=== PATIENT | male | born 1955 | race Caucasian/White ===

== ENCOUNTER 2019-01-01 08:39 | Outpatient (CLI) | payer OTHER, MEDICARE ==
[2019-01-01 10:43] LABS: ALBUMIN 4.3 g/dL (3.2-5.5); ALBUMIN/GLOBULIN RATIO 1.2 (1.0-2.2); ALKALINE PHOSPHATASE 73 IU/L (42-121); ALT ALANINE AMINOTRANSFERASE 25 IU/L (10-60); AST ASPARTATE AMINOTRANSFERASE 20 IU/L (10-42); BILIRUBIN,TOTAL 1.3 mg/dL (0.2-1.0); BUN - BLOOD UREA NITROGEN 21 mg/dL (6-20); CALCIUM 9.1 mg/dL (8.5-10.3); CARBON DIOXIDE - CO2 22 mmol/L (21-32); CHLORIDE 104 mmol/L (101-111); CHOL/HDL RATIO 4.1 (<5.0); CHOLESTEROL 115 mg/dL; CREATININE 1.1 mg/dL (0.6-1.2); GFR - MDRD 67 (>89); GLUCOSE 138 mg/dL (70-100); HDL CHOLESTEROL 28 mg/dL; LDL CHOLESTEROL,CALCULATED 62 mg/dL; LDL/HDL RATIO 2.2 (<3.6); SODIUM 136 mmol/L (135-145); TOTAL PROTEIN 7.9 g/dL (6.7-8.2); VLDL CHOLESTEROL 25 mg/dL
[2019-01-01 11:00] LABS: HB2 TOTAL 17.4 g/dL; HEMOGLOBIN A1C 0.81 g/dL; HEMOGLOBIN A1C % 6.4 % (4.6-6.2)
== END 2019-01-01 08:40 | disposition home or self-care (01) ==
LOC: LAB.F 08:39
PROVIDERS: ATTEND Internal Medicine
DX: E78.5 Hyperlipidemia, unspecified (principal); R73.02 Impaired glucose tolerance (oral); Z12.5 Encounter for screening for malignant neoplasm of prostate
CPT/HCPCS: 36415; 80053; 80061; 83036; 83721; 84153

== ENCOUNTER 2020-11-21 09:19 | Emergency (ER) | payer BC, MEDICARE ==
[2020-11-21] MEDS ORDERED: SODIUM CHLORIDE 0.9% 1,000 ML IV STA (09:32)
[2020-11-21] MEDS ORDERED: MORPHINE 10 MG/ML VIAL IVP STA (09:32)
[2020-11-21] MEDS ORDERED: ONDANSETRON 4 MG/2 ML VIAL IVP STA (09:33)
[2020-11-21 09:51] LABS: BASOPHILS # (AUTO) 0.1 10^3/uL (0.0-0.1); BASOPHILS % (AUTO) 0.4 %; EOSINOPHILS % (AUTO) 0.1 %; HCT - HEMATOCRIT 44.8 % (42.0-52.0); HGB - HEMOGLOBIN 15.3 g/dL (14.0-18.0); LYMPHOCYTES # (AUTO) 1.3 10^3/uL (1.5-3.5); LYMPHOCYTES % (AUTO) 8.2 %; MEAN CORPUSCULAR HEMOGLOBIN 32.6 pg (27.0-31.0); MEAN CORPUSCULAR HGB CONC 34.2 g/dL (32.0-36.0); MEAN CORPUSCULAR VOLUME 95.5 fL (80.0-94.0); MEAN PLATELET VOLUME 9.6 fL (7.4-11.4); MONOCYTES # (AUTO) 1.1 10^3/uL (0.0-1.0); MONOCYTES % (AUTO) 6.6 %; NEUTROPHILS # (AUTO) 13.3 10^3/uL (1.5-6.6); NEUTROPHILS % (AUTO) 84.2 %; PLT - PLATELET COUNT 190 10^3/uL (130-450); RED BLOOD COUNT 4.69 10^6/uL (4.70-6.10); WHITE BLOOD COUNT 15.8 x10^3/uL (4.8-10.8)
[2020-11-21] MEDS ORDERED: IOPAMIDOL-300 100 ML VIAL ONE (09:58)
[2020-11-21 10:05] LABS: ALBUMIN 4.3 g/dL (3.2-5.5); ALBUMIN/GLOBULIN RATIO 1.3 (1.0-2.2); CALCIUM 9.2 mg/dL (8.5-10.3); CREATININE 1.3 mg/dL (0.6-1.2); POTASSIUM 4.3 mmol/L (3.5-5.0); TOTAL PROTEIN 7.7 g/dL (6.7-8.2)
--- NOTE | 2020-11-21 10:58 | CT Report ---
PROCEDURE: Abdomen/Pelvis W INDICATIONS: flank pain, hx kidney stones CONTRAST: IV CONTRAST: Isovue 300 ml: 100 PO CONTRAST: *NO PO CONTRAST TECHNIQUE: After the administration of IV contrast, 5 mm thick sections acquired from the diaphragms to the symp hysis. 5 mm thick coronal and sagittal reformats were acquired. For radiation dose reduction, the f ollowing was used: automated exposure control, adjustment of mA and/or kV according to patient size. COMPARISON: None. FINDINGS: Image quality: Excellent. ABDOMEN: Lung bases: Lung bases are clear. Heart size is normal. Solid organs: Liver is mildly diffusely hypodense. The spleen is normal. There is a splenule at the caudal tip. There is a 7 mm coarse calcification in the ventral tail of the pancreas. The pancreas is otherwise normal. The gallbladder surgically absent. The biliary system is nondilated. The adrenal g lands are normal. Moderate left perinephric inflammation and mild left hydronephrosis. Mild proximal hydroureter. There is a 3 x 5 mm calcification in the proximal left ureter distal to which the ureter is nondilated. Rajiv th ureters demonstrate small cortical and cortical medullary cysts. An exophytic cystic mass arising posteriorly in the right kidney measuring 1.5 cm demonstrates indeterminate Hounsfield units on the s tudy. Peritoneum and bowel: Bowel loops demonstrate normal wall thickness and caliber. No free fluid or a ir. Nodes and vessels: No retroperitoneal or mesenteric adenopathy by size criteria. Aorta and inferior vena cava are normal in size. There is heavy mixed calcified and noncalcified atherosclerotic plaqu e. The right common iliac artery is occluded just distal to the bifurcation. External iliac artery re constitutes by abdominal wall collaterals just proximal to the inguinal ligament. Miscellaneous: No ventral hernias. PELVIS: Genitourinary: Distal ureters and urinary bladder appear normal. The prostate gland is minimally enla rged.. Miscellaneous: Small fat-containing right inguinal hernia is present. Bones: No suspicious bony lesions. No vertebral body compression fractures. IMPRESSION: 1. 3 x 5 mm obstructing left proximal ureteral calcification causing mild left hydroureteronephrosis and moderate perinephric inflammation. 2. Indeterminate 1.5 cm exophytic right posterior renal cystic mass. Renal protocol contrast-enhanced MRI or CT is recommended for further characterization. 3. Atherosclerotic aortoiliac occlusive disease. 4. Mild hepatic steatosis. Reviewed by: Yu Chang MD on 11/21/2020 10:57 AM PDT Approved by: Yu Chang MD on 11/21/2020 10:57 AM PDT Station ID: [id number]
[2020-11-21 11:14] LABS: BILIRUBIN,URINE NEGATIVE (NEGATIVE); GLUCOSE, URINE (UA) 500 mg/dL (NEGATIVE); KETONES,URINE (UA) NEGATIVE (NEGATIVE); LEUKOCYTE ESTERASE, URINE NEGATIVE (NEGATIVE); NITRITE,URINE NEGATIVE (NEGATIVE); OCCULT BLOOD,URINE MODERATE (NEGATIVE); PROTEIN,URINE 30 mg/dL (NEGATIVE); UROBILINOGEN,URINE 0.2 (NORMAL) E.U./dL (NORMAL)
[2020-11-21 11:15] LABS: CLARITY,URINE CLEAR (CLEAR)
[2020-11-21 11:22] LABS: BACTERIA,URINE Few /HPF (None Seen); RBC,URINE 0-5 /HPF (0-5); SQUAMOUS EPITHELIAL CELL,UR FEW Squamous (<= Few); WBC,URINE 0-3 /HPF (0-3)
--- NOTE | 2020-11-21 11:51 | ED Physician Documentation ---
History of Present Illness - Stated complaint Stated Complaint: MALE - Chief complaint Chief Complaint: Abd Pain - History obtained from History obtained from: Patient - Additonal information Additional information: 65-year-old man with past medical history of kidney stones presents with left flank pain sudden in onset last night radiating to the left lower quadrant associated with nonbloody nonbilious nausea and vomiting. This pain is intermittent, occurring about every 15 minutes, severe at present, 7 out of 10, sharp quality. Patient denies urinary symptoms.Denies fever Review of Systems Ten Systems: 10 systems reviewed and negative Constitutional: denies: Fever Cardiac: denies: Chest pain / pressure Respiratory: denies: Dyspnea GI: reports: Abdominal Pain, Nausea, Vomiting : denies: Dysuria, Frequency, Hesitancy, Hematuria Skin: denies: Rash Musculoskeletal: reports: Back pain PD PAST MEDICAL HISTORY - Past Medical History Cardiovascular: Hypertension, High cholesterol : Kidney stones - Past Surgical History General: Cholecystectomy Ortho: Arthroscopic surgery - Present Medications Home Medications: Ambulatory Orders Medication Instructions Recorded Confirmed Amlodipine Besylate [Norvasc] 1 tab PO DAILY 11/21/20 11/21/20 Atorvastatin [Lipitor] 1 tab PO DAILY 11/21/20 11/21/20 Benazepril HCl 1 tab PO DAILY 11/21/20 11/21/20 Doxycycline Hyclate 1 tab PO DAILY PRN 11/21/20 11/21/20 Ondansetron Odt [Zofran Odt] 4 mg TL Q6H PRN #10 tablet 11/21/20 Oxycodone HCl/Acetaminophen 1 each PO Q4H PRN #10 tablet 11/21/20 [Percocet 5-325 mg Tablet] Propranolol [Inderal] 5 mg PO DAILY 11/21/20 11/21/20 Tamsulosin [Flomax] 0.4 mg PO DAILY 14 Days #14 tab 11/21/20 metFORMIN [Glucophage] 1 tab PO DAILY 11/21/20 11/21/20 - Allergies Allergies/Adverse Reactions: Allergies Allergy/AdvReac Type Severity Reaction Status Date / Time Sulfa (Sulfonamide Allergy Hives Verified 11/21/20 09:26 Antibiotics) - Social History Does the pt smoke?: Yes Smoking Status: Current every day smoker Does the pt drink ETOH?: No Does the pt have substance abuse?: No PD ED PE NORMAL - Vitals Vital signs reviewed: Yes - General General: Alert and oriented X 3, No acute distress, Well developed/nourished - HEENT HEENT: Atraumatic, PERRL, EOMI - Neck Neck: Supple, no meningeal sign - Cardiac Cardiac: RRR - Respiratory Respiratory: No respiratory distress, Clear bilaterally - Abdomen Abdomen: Non tender, Non distended - Back Back: Other (Left CVA tender to palpation. Right CVA nontender) - Derm Derm: Normal color - Extremities Extremities: No deformity - Neuro Neuro: Alert and oriented X 3 - Psych Psych: Normal mood, Normal affect Results - Vitals Vitals: Vital Signs - 24 hr 11/21/20 11/21/20 11/21/20 09:26 11:05 12:11 Temperature 36.1 C L 36.0 C L Heart Rate 65 54 L Respiratory 18 18 Rate Blood Pressure 195/93 H 185/71 H 187/62 H O2 Saturation 96 96 Oxygen O2 Source Room air - Labs Labs: Laboratory Tests 11/21/20 11/21/20 11/21/20 09:36 09:36 11:03 WBC 15.8 H RBC 4.69 L Hgb 15.3 Hct 44.8 MCV 95.5 H MCH 32.6 H MCHC 34.2 RDW 13.0 Plt Count 190 MPV 9.6 Neut # (Auto) 13.3 H Lymph # (Auto) 1.3 L Summers # (Auto) 1.1 H Eos # (Auto) 0.0 Baso # (Auto) 0.1 Absolute Nucleated RBC 0.00 Nucleated RBC % 0.0 Sodium 137 Potassium 4.3 Chloride 106 Carbon Dioxide 19 L Anion Gap 12.0 BUN 21 H Creatinine 1.3 H Estimated GFR (MDRD) 55 L Glucose 277 H Calcium 9.2 Total Bilirubin 1.0 AST 24 ALT 30 Alkaline Phosphatase 80 Total Protein 7.7 Albumin 4.3 Globulin 3.4 Albumin/Globulin Ratio 1.3 Lipase 33 Urine Color LT. YELLOW Urine Clarity CLEAR Urine pH 5.0 Ur Specific [place] 1.020 Urine Protein 30 H Urine Glucose (UA) 500 H Urine Ketones NEGATIVE Urine Occult Blood MODERATE H Urine Nitrite NEGATIVE Urine Bilirubin NEGATIVE Urine Urobilinogen 0.2 (NORMAL) Ur Leukocyte Esterase NEGATIVE Urine RBC 0-5 Urine WBC 0-3 Ur Squamous Epith Cells FEW Squamous Urine Bacteria Few Urine Culture Comments NOT INDICATED PD MEDICAL DECISION MAKING - ED course ED course: 65-year-old man with prior history of stones presents with left kidney stone with mild hydronephrosis. Discussed results with the patient who is aware that he will need to follow-up with his primary doctor in regard to the incidental findings as well as in regard to the hydroureteronephrosis and need for follow- up dedicated renal CT or MRI. He has a copy of the CT report as well. Patient will follow up with urology in regards to his kidney stones. Strict return precautions given. Departure - Departure Disposition: 01 Home, Self Care Clinical Impression: Kidney stones Condition: Good Instructions: Kidney Stones Follow-Up: Georgia Moreland MD [Physician No Access] - Prescriptions: Tamsulosin [Flomax] 0.4 mg PO DAILY 14 Days #14 tab Oxycodone HCl/Acetaminophen [Percocet 5-325 mg Tablet] 1 each PO Q4H PRN #10 tablet PRN Reason: Pain Ondansetron Odt [Zofran Odt] 4 mg TL Q6H PRN #10 tablet PRN Reason: Nausea / Vomiting Comments: You are seen in the emergency department for kidney stones. You should have a follow-up CT with renal protocol as we discussed. Make sure that you follow-up with your primary doctor in regards to these results and also follow-up with Dr. Moreland, the urologist at [facility]. Return to the emergency department if you have any new or worsening symptoms or other concerns. Discharge Date/Time: 11/21/20 12:12
[2020-11-21 12:12] VITALS: BP 187/62
[2020-11-21] MEDS ORDERED: IOPAMIDOL-300 100 ML VIAL IVP ONE (17:02)
== END 2020-11-21 12:12 | disposition home or self-care (01) ==
LOC: ED 09:19
DX: N13.2 Hydronephrosis with renal and ureteral calculous obstruction (principal); I10 Essential (primary) hypertension; F17.200 Nicotine dependence, unspecified, uncomplicated
CPT/HCPCS: 36415; 74177; 80053; 81001; 83690; 85025; 96361; 96374; 96375; 99284; Q9967; 87086

== ENCOUNTER 2021-01-02 09:06 | Outpatient (CLI) | payer MEDICARE ==
[2021-01-02] MEDS ORDERED: GADOBUTROL 15 MMOL/15 ML VIAL ONE (09:54)
--- NOTE | 2021-01-02 11:34 | MRI Report ---
PROCEDURE: Abdomen W/WO INDICATIONS: PERIPHERAL VASCULAR DISEASE, SMOKER, RENAL MASS CONTRAST: IV CONTRAST: Gadavist ml: 11 TECHNIQUE: Coronal ultra fast SE, axial 2D spoiled GE in- and [id number]; axial breath-hold T2 fast SE. Dynam ic axial ultra fast GE during the administration of contrast; post-contrast coronal ultra fast GE or 2D spoiled GE with fat saturation from the hepatic dome to the iliac crests. Optional diffusion weig hted imaging and ADC may be performed. COMPARISON: Prior CT 11/21/2020 which identified a 1.5 cm 40.3 H[address] ovoid indeterminate [address] ructure projecting from the posterior cortical border of the right mid kidney. FINDINGS: Image quality: Excellent. Lung bases: No basal pleural effusions. Heart size is normal. Solid organs: Liver and spleen are normal in size and enhancement. Gallbladder has been previously resected Biliary system is non dilated. Pancreas is normal in morphology. No adrenal nodules. Bot h kidneys demonstrate normal size and enhancement, without hydronephrosis. The prior CT scanning fro mid November of this year had identified in exophytic sharply demarcated homogeneous structure with an a ppearance most likely representing proteinaceous cyst. This measured higher than water in radiodensit y on CT scanning. The current study shows a perceptible thin rim of soft tissue surrounding nonenhanc ing internal material, consistent with a minimally complex cyst. No nodularity or internal septations are seen. Nodes and vessels: No retroperitoneal or mesenteric adenopathy by size criteria. Aorta and inferior vena cava are normal in size. Bowel and peritoneum: Unenhanced bowel loops are normal in caliber. No free fluid. Bones and soft tissues: No ventral hernias. Bone marrow is normal in overall signal. IMPRESSION: The structure exophytic from the posterior border of the right mid kidney has imaging findings consis tent with minimally complex proteinaceous right exophytic cyst measuring up to 1.5 cm in maximal dime nsion. This structure does not have imaging characteristics suggestive of renal cortical malignancy. This there is a indication for follow-up of this structure over time a near term targeted single orga n right renal ultrasound should be obtained to establish baseline imaging and follow-up assessment in 6 months could be obtained and assuming stability and additional follow-up in 1 year thereafter coul d be obtained. Reviewed by: Fredy Mon MD on 01/02/2021 11:32 AM PDT Approved by: Fredy Mon MD on 01/02/2021 11:32 AM PDT Station ID: [id number]
--- NOTE | 2021-01-02 12:00 | Ultrasound Report ---
PROCEDURE: Aorta Screening INDICATIONS: PERIPHERAL VASCULAR DISEASE, SMOKER, RENAL MASS TECHNIQUE: Real time scanning was performed of the aorta and iliac arteries, with image documentatio n. COMPARISON: CT abdomen/pelvis 11/21/2020 FINDINGS: Aorta: Proximal aortic diameter measures 2.6 cm. Mid-aorta measures 2.4 cm. Distal aortic diameter is 2.1 cm. Iliac arteries: Right common iliac artery measures 1.3 cm., And is occluded. Left common iliac norma ry measures 1.5 cm. IMPRESSION: No aneurysmal dilatation found over the aorta and common iliac arteries. However, the right common il iac artery is occluded. Reviewed by: Fredy Mon MD on 01/02/2021 11:58 AM PDT Approved by: Fredy Mon MD on 01/02/2021 11:58 AM PDT Station ID: [id number]
[2021-01-02] MEDS ORDERED: GADOBUTROL 15 MMOL/15 ML VIAL IVP ONE (16:26)
== END 2021-01-02 09:07 | disposition home or self-care (01) ==
LOC: DI 09:06
PROVIDERS: ATTEND Internal Medicine
DX: I73.9 Peripheral vascular disease, unspecified (principal); I74.5 Embolism and thrombosis of iliac artery; F17.210 Nicotine dependence, cigarettes, uncomplicated; N28.89 Other specified disorders of kidney and ureter; N28.1 Cyst of kidney, acquired
CPT/HCPCS: 74183; 76706; A9585

== ENCOUNTER 2021-02-13 10:28 | Outpatient (CLI) | payer MEDICARE ==
[2021-02-13 11:00] LABS: BASOPHILS # (AUTO) 0.1 10^3/uL (0.0-0.1); BASOPHILS % (AUTO) 0.7 %; EOSINOPHILS # (AUTO) 0.2 10^3/uL (0.0-0.7); EOSINOPHILS % (AUTO) 1.5 %; HCT - HEMATOCRIT 45.3 % (42.0-52.0); HGB - HEMOGLOBIN 15.7 g/dL (14.0-18.0); LYMPHOCYTES # (AUTO) 2.8 10^3/uL (1.5-3.5); LYMPHOCYTES % (AUTO) 24.9 %; MEAN CORPUSCULAR HEMOGLOBIN 32.8 pg (27.0-31.0); MEAN CORPUSCULAR HGB CONC 34.7 g/dL (32.0-36.0); MEAN CORPUSCULAR VOLUME 94.8 fL (80.0-94.0); MEAN PLATELET VOLUME 9.6 fL (7.4-11.4); MONOCYTES # (AUTO) 1.2 10^3/uL (0.0-1.0); MONOCYTES % (AUTO) 10.3 %; NEUTROPHILS % (AUTO) 62.2 %; PLT - PLATELET COUNT 197 10^3/uL (130-450); RED BLOOD COUNT 4.78 10^6/uL (4.70-6.10); RED CELL DISTRIBUTION WIDTH 12.9 % (12.0-15.0); WHITE BLOOD COUNT 11.2 x10^3/uL (4.8-10.8)
[2021-02-13 11:09] LABS: ALBUMIN 4.3 g/dL (3.2-5.5); ALBUMIN/GLOBULIN RATIO 1.4 (1.0-2.2); ALKALINE PHOSPHATASE 87 IU/L (42-121); ALT ALANINE AMINOTRANSFERASE 26 IU/L (10-60); AST ASPARTATE AMINOTRANSFERASE 19 IU/L (10-42); BILIRUBIN,TOTAL 1.1 mg/dL (0.2-1.0); BUN - BLOOD UREA NITROGEN 17 mg/dL (6-20); CALCIUM 9.1 mg/dL (8.5-10.3); CARBON DIOXIDE - CO2 21 mmol/L (21-32); CHLORIDE 107 mmol/L (101-111); CHOL/HDL RATIO 3.9 (<5.0); CHOLESTEROL 116 mg/dL; GFR - MDRD 75 (>89); GLUCOSE 223 mg/dL (70-100); HDL CHOLESTEROL 30 mg/dL; LDL CHOLESTEROL,CALCULATED 55 mg/dL; LDL/HDL RATIO 1.8 (<3.6); POTASSIUM 4.1 mmol/L (3.5-5.0); SODIUM 139 mmol/L (135-145); TOTAL PROTEIN 7.4 g/dL (6.7-8.2); TRIGLYCERIDES 155 mg/dL; VLDL CHOLESTEROL 31 mg/dL
[2021-02-13 12:52] LABS: ESTIMATED AVERAGE GLUCOSE 214 mg/dL (70-100); HEMOGLOBIN A1c% 9.1 % (4.27-6.07)
== END 2021-02-13 10:29 | disposition home or self-care (01) ==
LOC: LAB 10:28
PROVIDERS: ATTEND Internal Medicine
DX: I10 Essential (primary) hypertension (principal); E78.5 Hyperlipidemia, unspecified; R73.02 Impaired glucose tolerance (oral)
CPT/HCPCS: 36415; 80053; 80061; 83036; 83721; 85025

== ENCOUNTER 2021-03-27 09:06 | Outpatient (CLI) | payer MEDICARE ==
[2021-03-27] MEDS ORDERED: IOPAMIDOL-300 100 ML VIAL ONE (09:21)
[2021-03-27] MEDS ORDERED: IOPAMIDOL-300 100 ML VIAL IVP ONE (13:55)
--- NOTE | 2021-03-27 16:59 | CT Report ---
PROCEDURE: ANGIO ABD RUNOFF W/WO - B/L INDICATIONS: PERIPHERAL ARTERY DISEASE CONTRAST: IV CONTRAST: Isovue 300 ml: 125 PO CONTRAST: *NO PO CONTRAST TECHNIQUE: After the administration of intravenous contrast, 2 and 5 mm sections acquired from T12 to the feet, with optional delayed image acquisition from the knees to the feet. 3-dimensional maximum intensity projection (MIP) coronal and sagittal reformats, and/or 3-dimensional volume rendering reformatting w as then performed. For radiation dose reduction, the following was used: automated exposure control , adjustment of mA and/or kV according to patient size. COMPARISON: None. FINDINGS: Image quality: Degraded by technical factors Extravascular tissues: Visualized arterial phase portions of the liver, pancreas, spleen, adrenals, a nd kidneys are grossly unremarkable. Gallbladder surgically absent. Urinary bladder grossly unremarka ble. Visualized bowel loops are normal in appearance. No adenopathy. No free fluid. Abdominal aorta: There is moderate diffuse plaque within the abdominal aorta, causing moderate diff use stenosis. No aneurysm nor dissection. Right lower extremity: The common and external iliac arteries are occluded. Internal iliac artery is occluded at its origin and reconstitutes just distal to its origin. There is reconstituted flow with in the common femoral artery which is mildly diffusely stenotic. Profunda and superficial femoral art eries are widely patent. Above and below knee popliteal artery is patent. Anterior tibial artery, tib ioperoneal trunk, peroneal and posterior tibial arteries are patent. Left lower extremity: Common iliac artery demonstrates a chronic appearing short segment limited dis section within its mid/distal aspect, which does not appear to be flow-limiting. Internal and axial i liac arteries are patent. Common, profunda, superficial femoral arteries are patent. Above and below knee popliteal artery is patent. Anterior tibial artery, tibioperoneal trunk, peroneal and posterior tibial arteries are grossly patent. IMPRESSION: 1. Moderate diffuse aortic stenosis. 2. Occlusion of the right iliac artery. No significant left-sided inflow stenosis. 3. No significant outflow nor runoff vessel stenosis bilaterally. Reviewed by: Irasema Allan MD on 03/27/2021 4:57 PM PDT Approved by: Irasema Allan MD on 03/27/2021 4:57 PM PDT Station ID: [id number]
== END 2021-03-27 09:07 | disposition home or self-care (01) ==
LOC: DI 09:06
PROVIDERS: ATTEND Internal Medicine
DX: I35.0 Nonrheumatic aortic (valve) stenosis (principal); I74.5 Embolism and thrombosis of iliac artery
CPT/HCPCS: 36415; 75635; 82565; Q9967

== ENCOUNTER 2021-05-16 09:32 | Outpatient (CLI) | payer MEDICARE ==
[2021-05-16 09:57] LABS: BASOPHILS # (AUTO) 0.1 10^3/uL (0.0-0.1); BASOPHILS % (AUTO) 0.7 %; EOSINOPHILS # (AUTO) 0.1 10^3/uL (0.0-0.7); EOSINOPHILS % (AUTO) 1.5 %; HGB - HEMOGLOBIN 16.4 g/dL (14.0-18.0); LYMPHOCYTES # (AUTO) 2.1 10^3/uL (1.5-3.5); LYMPHOCYTES % (AUTO) 24.4 %; MEAN CORPUSCULAR HEMOGLOBIN 32.8 pg (27.0-31.0); MEAN CORPUSCULAR HGB CONC 33.5 g/dL (32.0-36.0); MEAN PLATELET VOLUME 9.5 fL (7.4-11.4); MONOCYTES # (AUTO) 0.9 10^3/uL (0.0-1.0); NEUTROPHILS # (AUTO) 5.5 10^3/uL (1.5-6.6); NEUTROPHILS % (AUTO) 63.1 %; PLT - PLATELET COUNT 204 10^3/uL (130-450); WHITE BLOOD COUNT 8.6 x10^3/uL (4.8-10.8)
[2021-05-16 10:10] LABS: ALBUMIN 4.4 g/dL (3.2-5.5); ALBUMIN/GLOBULIN RATIO 1.5 (1.0-2.2); BILIRUBIN,TOTAL 1.9 mg/dL (0.2-1.0); CALCIUM 9.4 mg/dL (8.5-10.3); CREATININE 1.2 mg/dL (0.6-1.2); POTASSIUM 4.2 mmol/L (3.5-5.0); TOTAL PROTEIN 7.4 g/dL (6.7-8.2)
[2021-05-16 12:05] LABS: ESTIMATED AVERAGE GLUCOSE 151 mg/dL (70-100); HEMOGLOBIN A1c% 6.9 % (4.27-6.07)
== END 2021-05-16 09:33 | disposition home or self-care (01) ==
LOC: LAB 09:32
PROVIDERS: ATTEND Internal Medicine
DX: I73.9 Peripheral vascular disease, unspecified (principal)
CPT/HCPCS: 36415; 80053; 83036; 85025

== ENCOUNTER 2022-09-11 09:32 | Outpatient (CLI) | payer MEDICARE ==
--- NOTE | 2022-09-12 13:37 | Ultrasound Report ---
PROCEDURE: Retroperitoneal Limited INDICATIONS: RENAL MASS TECHNIQUE: Real-time scanning was performed of the kidneys and bladder, with image documentation. COMPARISON: CT 03/27/2021, MR 12/25/2020, CT 11/21/2020. FINDINGS: Kidneys: Kidneys are normal in size. Right kidney measures 10.4 cm long; left kidney measures 11.3 cm long. Right renal cortical thickness is 1.4 cm; left renal cortical thickness is 1.5 cm. No mike d masses, hydronephrosis, or nephrolithiasis identified. At the right mid kidney, an exophytic simple appearing cyst is present measuring up to 1.7 cm, likely corresponding to the 1.5 cm cyst seen previ ously. 2 simple appearing left renal cyst present, largest at the lower kidney measuring up to 2.0 cm . Bladder: Pre-void bladder volume is 48 mL. Post-void images not obtained. Pre-void images demonstr ate no intraluminal masses or stones. On pre-void images, both ureteral jets are noted with color Do ppler interrogation. (Of note, ureteral jets may not be detectable in up to 25% of cases due to insu fficient differences in specific gravity between ureteral and bladder urine). Miscellaneous: No free abdominal fluid. IMPRESSION: No solid renal mass identified sonographically. Simple appearing renal cysts present bilaterally. Reviewed by: Robi Holliday MD on 09/12/2022 1:35 PM PST Approved by: Robi Holliday MD on 09/12/2022 1:35 PM PST Station ID: [id number]
== END 2022-09-11 09:33 | disposition home or self-care (01) ==
LOC: DI 09:32
PROVIDERS: ATTEND Registered Nurse
DX: N28.89 Other specified disorders of kidney and ureter (principal); N28.1 Cyst of kidney, acquired

== ENCOUNTER 2023-01-21 10:25 | Outpatient (CLI) | payer MEDICARE ==
[2023-01-21 10:52] LABS: BASOPHILS # (AUTO) 0.1 10^3/uL (0.0-0.1); BASOPHILS % (AUTO) 0.6 %; EOSINOPHILS # (AUTO) 0.1 10^3/uL (0.0-0.7); EOSINOPHILS % (AUTO) 1.3 %; HCT - HEMATOCRIT 48.8 % (42.0-52.0); HGB - HEMOGLOBIN 16.1 g/dL (14.0-18.0); LYMPHOCYTES # (AUTO) 2.4 10^3/uL (1.5-3.5); LYMPHOCYTES % (AUTO) 24.2 %; MEAN CORPUSCULAR HEMOGLOBIN 32.1 pg (27.0-31.0); MEAN CORPUSCULAR VOLUME 97.4 fL (80.0-94.0); MEAN PLATELET VOLUME 9.6 fL (7.4-11.4); MONOCYTES % (AUTO) 10.2 %; NEUTROPHILS # (AUTO) 6.2 10^3/uL (1.5-6.6); NEUTROPHILS % (AUTO) 63.4 %; PLT - PLATELET COUNT 158 10^3/uL (130-450); RED BLOOD COUNT 5.01 10^6/uL (4.70-6.10); RED CELL DISTRIBUTION WIDTH 13.4 % (12.0-15.0); WHITE BLOOD COUNT 9.8 x10^3/uL (4.8-10.8)
[2023-01-21 10:58] LABS: ESTIMATED AVERAGE GLUCOSE 157 mg/dL (70-100); HEMOGLOBIN A1c% 7.1 % (4.27-6.07)
[2023-01-21 11:11] LABS: ALBUMIN/GLOBULIN RATIO 1.3 (1.0-2.2); ALKALINE PHOSPHATASE 66 IU/L (42-121); ALT ALANINE AMINOTRANSFERASE 18 IU/L (10-60); AST ASPARTATE AMINOTRANSFERASE 16 IU/L (10-42); BILIRUBIN,TOTAL 1.1 mg/dL (0.2-1.0); BUN - BLOOD UREA NITROGEN 27 mg/dL (6-20); CALCIUM 9.1 mg/dL (8.5-10.3); CARBON DIOXIDE - CO2 22 mmol/L (21-32); CHLORIDE 112 mmol/L (101-111); CHOL/HDL RATIO 4.7 (<5.0); CHOLESTEROL 156 mg/dL; CREATININE 1.2 mg/dL (0.6-1.2); GFR - MDRD 60 (>89); GLUCOSE 161 mg/dL (70-100); HDL CHOLESTEROL 33 mg/dL; LDL CHOLESTEROL,CALCULATED 95 mg/dL; LDL/HDL RATIO 2.9 (<3.6); POTASSIUM 4.7 mmol/L (3.5-5.0); SODIUM 142 mmol/L (135-145); TOTAL PROTEIN 7.1 g/dL (6.7-8.2); TRIGLYCERIDES 142 mg/dL; VLDL CHOLESTEROL 28 mg/dL
== END 2023-01-21 10:26 | disposition home or self-care (01) ==
LOC: LAB 10:25
PROVIDERS: ATTEND Registered Nurse
DX: E78.5 Hyperlipidemia, unspecified (principal); Z79.899 Other long term (current) drug therapy; E11.9 Type 2 diabetes mellitus without complications; Z12.5 Encounter for screening for malignant neoplasm of prostate
CPT/HCPCS: 36415; 80053; 80061; 83036; 85025; G0103; 82043; 82570; 83721; 84153

== ENCOUNTER 2024-03-16 08:57 | Outpatient (CLI) | payer MEDICARE ==
[2024-03-16 09:07] LABS: BASOPHILS # (AUTO) 0.1 10^3/uL (0.0-0.1); BASOPHILS % (AUTO) 0.7 %; EOSINOPHILS # (AUTO) 0.3 10^3/uL (0.0-0.7); EOSINOPHILS % (AUTO) 2.5 %; HCT - HEMATOCRIT 48.2 % (42.0-52.0); HGB - HEMOGLOBIN 15.8 g/dL (14.0-18.0); LYMPHOCYTES # (AUTO) 2.3 10^3/uL (1.5-3.5); MEAN CORPUSCULAR HEMOGLOBIN 31.9 pg (27.0-31.0); MEAN CORPUSCULAR HGB CONC 32.8 g/dL (32.0-36.0); MEAN CORPUSCULAR VOLUME 97.4 fL (80.0-94.0); MEAN PLATELET VOLUME 9.4 fL (7.4-11.4); MONOCYTES # (AUTO) 1.2 10^3/uL (0.0-1.0); MONOCYTES % (AUTO) 10.8 %; NEUTROPHILS % (AUTO) 64.6 %; PLT - PLATELET COUNT 202 10^3/uL (130-450); RED BLOOD COUNT 4.95 10^6/uL (4.70-6.10); RED CELL DISTRIBUTION WIDTH 13.2 % (12.0-15.0); WHITE BLOOD COUNT 10.8 x10^3/uL (4.8-10.8)
[2024-03-16 09:38] LABS: THYROID STIMULATING HORMONE 2.59 uIU/mL (0.34-5.60)
[2024-03-16 09:46] LABS: ALBUMIN 4.4 g/dL (3.2-5.5); ALBUMIN/GLOBULIN RATIO 1.7 (1.0-2.2); ALKALINE PHOSPHATASE 77 IU/L (42-121); ALT ALANINE AMINOTRANSFERASE 18 IU/L (10-60); AST ASPARTATE AMINOTRANSFERASE 15 IU/L (10-42); BILIRUBIN,TOTAL 1.1 mg/dL (0.2-1.0); BUN - BLOOD UREA NITROGEN 19 mg/dL (6-20); CALCIUM 9.5 mg/dL (8.5-10.3); CARBON DIOXIDE - CO2 27 mmol/L (21-32); CHLORIDE 106 mmol/L (101-111); CHOL/HDL RATIO 3.3 (<5.0); CHOLESTEROL 111 mg/dL; CREATININE 1.3 mg/dL (0.6-1.3); GFR - MDRD 55 (>89); GLUCOSE 157 mg/dL (74-104); HDL CHOLESTEROL 34 mg/dL; LDL CHOLESTEROL,CALCULATED 55 mg/dL; LDL/HDL RATIO 1.6 (<3.6); POTASSIUM 4.9 mmol/L (3.5-4.5); SODIUM 139 mmol/L (135-145); TRIGLYCERIDES 109 mg/dL; VLDL CHOLESTEROL 22 mg/dL
== END 2024-03-16 08:58 | disposition home or self-care (01) ==
LOC: LAB 08:57
PROVIDERS: ATTEND Registered Nurse
DX: Z13.228 Encounter for screening for other metabolic disorders (principal); Z13.220 Encounter for screening for lipoid disorders; Z13.29 Encounter for screening for other suspected endocrine disorder; Z13.0 Encounter for screening for diseases of the blood and blood-forming organs and certain disorders involving the immune mechanism; Z12.5 Encounter for screening for malignant neoplasm of prostate
CPT/HCPCS: 36415; 80053; 80061; 84443; 85025; G0103; 83721; 84153

== ENCOUNTER 2024-03-29 03:35 | Outpatient (CLI) | payer MEDICARE | END 2024-03-29 23:59 | disposition critical access hospital (66) | LOC: EMS 03:35 | DX: R06.02 Shortness of breath (principal); R61 Generalized hyperhidrosis; R23.2 Flushing; R09.89 Other specified symptoms and signs involving the circulatory and respiratory systems | CPT/HCPCS: A0425; A0429 ==

== ENCOUNTER 2024-03-29 03:41 | Emergency (ER) | payer MEDICARE ==
[2024-03-29] MEDS ORDERED: iohexoL-300 100 ML VIAL ONE (03:47)
--- NOTE | 2024-03-29 03:53 | ED Physician Documentation ---
PD HPI DYSPNEA - Stated complaint Stated Complaint: SOA - History obtained from History obtained from: Patient, EMS - Additional information Additional information: 68-year-old male with history of prediabetes presents by EMS from home for s udden onset shortness of breath beginning around 3 AM today. Patient states that he went to bed in his usual state of health and woke up around 3 AM severely short of breath. When medics arrived they state patient was sitting upright in bed in the tripod position. Saturating 89% on room air. They placed the patient on 15 L via nonrebreather mask and transported the patient for evaluation. EKG sinus tachycardia. On arrival patient was tachypneic, Using abdominal muscles to help breathe, still complaining of shortness of breath. Patient denies history of COPD, congestive heart failure, or other chronic respiratory conditions. Patient states that this has never happened to him before. Denies recent surgeries or immobilizations. Review of Systems Constitutional: denies: Fever, Chills Cardiac: denies: Chest pain / pressure, Palpitations, Calf pain Respiratory: reports: Dyspnea. denies: Cough, Wheezing GI: denies: Abdominal Pain, Nausea, Vomiting, Constipation, Diarrhea Skin: denies: Rash, Lesions, Abrasion (s) PD PAST MEDICAL HISTORY - Past Medical History Cardiovascular: Hypertension, High cholesterol : Kidney stones - Past Surgical History General: Cholecystectomy Ortho: Arthroscopic surgery - Present Medications Home Medications: Ambulatory Orders Medication Instructions Recorded Confirmed Amlodipine Besylate [Norvasc] 1 tab PO DAILY 11/21/20 11/21/20 Atorvastatin [Lipitor] 1 tab PO DAILY 11/21/20 11/21/20 Benazepril HCl 1 tab PO DAILY 11/21/20 11/21/20 Doxycycline Hyclate 1 tab PO DAILY PRN 11/21/20 11/21/20 Ondansetron Odt [Zofran Odt] 4 mg TL Q6H PRN #10 tablet 11/21/20 Oxycodone HCl/Acetaminophen 1 each PO Q4H PRN #10 tablet 11/21/20 [Percocet 5-325 mg Tablet] Propranolol [Inderal] 5 mg PO DAILY 11/21/20 11/21/20 Tamsulosin [Flomax] 0.4 mg PO DAILY 14 Days #14 tab 11/21/20 metFORMIN [Glucophage] 1 tab PO DAILY 11/21/20 11/21/20 - Allergies Allergies/Adverse Reactions: Allergies Allergy/AdvReac Type Severity Reaction Status Date / Time Sulfa (Sulfonamide Allergy Hives Verified 03/29/24 03:52 Antibiotics) - Social History Does the pt smoke?: Yes Smoking Status: Current every day smoker Does the pt drink ETOH?: No Does the pt have substance abuse?: No PD ED PE NORMAL - Vitals Vital signs reviewed: Yes - General General: Alert and oriented X 3, Other (Ill-appearing, in moderate distress, diaphoretic) - Cardiac Cardiac: Other (Tachycardia, irregularly irregular) - Respiratory Respiratory: Other (Upper airway expiratory wheezes, tachypnea, using abdominal muscles to help him breathe) - Abdomen Abdomen: Soft, Non tender, Non distended - Derm Derm: Other (pale, diaphoretic) - Extremities Extremities: No deformity, No edema, No calf tenderness / cord - Neuro Neuro: Alert and oriented X 3, felt finisher 2-12 intact, No motor deficit, Normal speech Results - Vitals Vitals: Vital Signs - 24 hr 03/29/24 03/29/24 03/29/24 03:52 04:14 04:40 Temperature 36.0 C L Heart Rate 99 88 92 Respiratory 27 H 27 H Rate Blood Pressure 209/108 H O2 Saturation 97 95 If not protocol 15 : Oxygen Flow, liters/minute 03/29/24 03/29/24 03/29/24 05:00 05:32 06:10 Temperature Heart Rate 65 56 L 53 L Respiratory 24 24 Rate Blood Pressure 191/95 H 177/89 H 150/83 H O2 Saturation 98 97 97 If not protocol : Oxygen Flow, liters/minute 03/29/24 03/29/24 03/29/24 06:35 07:00 07:24 Temperature Heart Rate 54 L 57 L 58 L Respiratory 23 18 19 Rate Blood Pressure 171/91 H 153/88 H O2 Saturation 93 93 94 If not protocol 2 2 2 : Oxygen Flow, liters/minute 03/29/24 03/29/24 03/29/24 08:23 09:07 09:30 Temperature Heart Rate 59 L 57 L 57 L Respiratory 17 16 16 Rate Blood Pressure 170/87 H 164/82 H 161/89 H O2 Saturation 94 95 94 If not protocol 2 2 2 : Oxygen Flow, liters/minute 09/03/29/24 03/29/24 10:00 11:00 11:30 Temperature 36.2 C L Heart Rate 57 L 58 L 56 L Respiratory 16 17 20 Rate Blood Pressure 183/77 H 167/82 H 174/88 H O2 Saturation 96 94 94 If not protocol 2 2 2 : Oxygen Flow, liters/minute 03/29/24 03/29/24 03/29/24 12:00 12:30 13:00 Temperature Heart Rate 58 L 57 L 57 L Respiratory 18 18 18 Rate Blood Pressure 185/96 H 154/83 H 179/98 H O2 Saturation 94 94 95 If not protocol 2 2 2 : Oxygen Flow, liters/minute 03/29/24 03/29/24 13:30 14:00 Temperature Heart Rate 58 L 54 L Respiratory 18 18 Rate Blood Pressure 188/94 H O2 Saturation 95 95 If not protocol 2 2 : Oxygen Flow, liters/minute Oxygen O2 Source Nasal cannula Oxygen Flow Rate 15 - EKG (time done) 0349 EKG releavant findings:: EKG personally interpreted by author of this note. Relevant findings are: Rate: Rate (enter#) (95) Rhythm: Atrial fibrillation Other comments: Other comments (PVCs present. Poor quality due to motion artifact. No STEMI) - Labs Labs: Laboratory Tests 03/29/24 03/29/24 03/29/24 03:51 03:51 03:51 WBC 14.6 H RBC 5.00 Hgb 15.9 Hct 48.9 MCV 97.8 H MCH 31.8 H MCHC 32.5 RDW 13.7 Plt Count 228 MPV 10.1 Neut # (Auto) 7.2 H Lymph # (Auto) 5.2 H [place] # (Auto) 1.5 H Eos # (Auto) 0.4 Baso # (Auto) 0.1 Absolute Nucleated RBC 0.00 Band Neuts % (Manual) Not Reportable Abnorm Lymph % (Manual) Not Reportable Nucleated RBC % 0.0 Neutrophils # (Manual) Not Reportable Lymphocytes # (Manual) Not Reportable Monocytes # (Manual) Not Reportable Eosinophils # (Manual) Not Reportable Basophils # (Manual) Not Reportable Differential Comment MANUAL=AUTO DIFF WBC Morphology NORMAL APPEARANCE Platelet Estimate NORMAL (130-450,000) Platelet Morphology NORMAL APPEARANCE RBC Morph Micro Appear NORMAL APPEARANCE PT 11.5 INR 1.0 APTT 27.2 Bld Gas Analysis Time Sample Site ABG pH ABG pCO2 ABG pO2 ABG HCO3 ABG Total CO2 ABG O2 Saturation ABG Base Excess Cordell Test O2 Delivery Device O2 Liters/Min Sodium 138 Potassium 4.6 H Chloride 106 Carbon Dioxide 17 L Anion Gap 15.0 H BUN 28 H Creatinine 1.3 Estimated GFR (MDRD) 55 L Glucose 266 H Lactic Acid Calcium 9.2 Total Bilirubin 0.6 AST 39 ALT 32 Alkaline Phosphatase 102 Troponin I High Sens B-Natriuretic Peptide Total Protein 7.1 Albumin 4.3 Globulin 2.8 Albumin/Globulin Ratio 1.5 Nasal Adenovirus (PCR) Nasal B. parapertussis DNA (PCR) Nasal Coronavir 229E PCR Nasal Coronavir HKU1 PCR Nasal Coronavir NL63 PCR Nasal Coronavir OC43 PCR Nasal Enterovir/Rhinovir PCR Nasal Influenza B PCR Nasal Influenza A PCR Nasal Parainfluen 1 PCR Nasal Parainfluen 2 PCR Nasal Parainfluen 3 PCR Nasal Parainfluen 4 PCR Nasal RSV (PCR) Nasal B.pertussis DNA PCR Nasal C.pneumoniae (PCR) George Human Metapneumo PCR Nasal M.pneumoniae (PCR) Nasal SARS-CoV-2 (PCR) 03/29/24 03/29/24 03/29/24 03:51 03:51 03:51 WBC RBC Hgb Hct MCV MCH MCHC RDW Plt Count MPV Neut # (Auto) Lymph # (Auto) [place] # (Auto) Eos # (Auto) Baso # (Auto) Absolute Nucleated RBC Band Neuts % (Manual) Abnorm Lymph % (Manual) Nucleated RBC % Neutrophils # (Manual) Lymphocytes # (Manual) Monocytes # (Manual) Eosinophils # (Manual) Basophils # (Manual) Differential Comment WBC Morphology Platelet Estimate Platelet Morphology RBC Morph Micro Appear PT INR APTT Bld Gas Analysis Time Sample Site ABG pH ABG pCO2 ABG pO2 ABG HCO3 ABG Total CO2 ABG O2 Saturation ABG Base Excess Cordell Test O2 Delivery Device O2 Liters/Min Sodium Potassium Chloride Carbon Dioxide Anion Gap BUN Creatinine Estimated GFR (MDRD) Glucose Lactic Acid 4.8 H* Calcium Total Bilirubin AST ALT Alkaline Phosphatase Troponin I High Sens 55.1 H* B-Natriuretic Peptide 1128 H Total Protein Albumin Globulin Albumin/Globulin Ratio Nasal Adenovirus (PCR) Nasal B. parapertussis DNA (PCR) Nasal Coronavir 229E PCR Nasal Coronavir HKU1 PCR Nasal Coronavir NL63 PCR Nasal Coronavir OC43 PCR Nasal Enterovir/Rhinovir PCR Nasal Influenza B PCR Nasal Influenza A PCR Nasal Parainfluen 1 PCR Nasal Parainfluen 2 PCR Nasal Parainfluen 3 PCR Nasal Parainfluen 4 PCR Nasal RSV (PCR) Nasal B.pertussis DNA PCR Nasal C.pneumoniae (PCR) George Human Metapneumo PCR Nasal M.pneumoniae (PCR) Nasal SARS-CoV-2 (PCR) 03/29/24 03/29/24 03/29/24 04:03 04:15 05:49 WBC RBC Hgb Hct MCV MCH MCHC RDW Plt Count MPV Neut # (Auto) Lymph # (Auto) [place] # (Auto) Eos # (Auto) Baso # (Auto) Absolute Nucleated RBC Band Neuts % (Manual) Abnorm Lymph % (Manual) Nucleated RBC % Neutrophils # (Manual) Lymphocytes # (Manual) Monocytes # (Manual) Eosinophils # (Manual) Basophils # (Manual) Differential Comment WBC Morphology Platelet Estimate Platelet Morphology RBC Morph Micro Appear PT INR APTT Bld Gas Analysis Time 0421 Sample Site RIGHT RADIAL ABG pH 7.24 L ABG pCO2 41 ABG pO2 68 L ABG HCO3 17.3 L ABG Total CO2 18.5 L ABG O2 Saturation 91 L ABG Base Excess -9.6 L Cordell Test POSITIVE O2 Delivery Device NON REBREATHER MASK O2 Liters/Min 15.00 Sodium Potassium Chloride Carbon Dioxide Anion Gap BUN Creatinine Estimated GFR (MDRD) Glucose Lactic Acid Calcium Total Bilirubin AST ALT Alkaline Phosphatase Troponin I High Sens 78.4 H* B-Natriuretic Peptide Total Protein Albumin Globulin Albumin/Globulin Ratio Nasal Adenovirus (PCR) NOT DETECTED Nasal B. parapertussis DNA (PCR) NOT DETECTED Nasal Coronavir 229E PCR NOT DETECTED Nasal Coronavir HKU1 PCR NOT DETECTED Nasal Coronavir NL63 PCR NOT DETECTED Nasal Coronavir OC43 PCR NOT DETECTED Nasal Enterovir/Rhinovir PCR NOT DETECTED Nasal Influenza B PCR NOT DETECTED Nasal Influenza A PCR NOT DETECTED Nasal Parainfluen 1 PCR NOT DETECTED Nasal Parainfluen 2 PCR NOT DETECTED Nasal Parainfluen 3 PCR NOT DETECTED Nasal Parainfluen 4 PCR NOT DETECTED Nasal RSV (PCR) NOT DETECTED Nasal B.pertussis DNA PCR NOT DETECTED Nasal C.pneumoniae (PCR) NOT DETECTED George Human Metapneumo PCR NOT DETECTED Nasal M.pneumoniae (PCR) NOT DETECTED Nasal SARS-CoV-2 (PCR) NOT DETECTED 03/29/24 11:38 WBC RBC Hgb Hct MCV MCH MCHC RDW Plt Count MPV Neut # (Auto) Lymph # (Auto) [place] # (Auto) Eos # (Auto) Baso # (Auto) Absolute Nucleated RBC Band Neuts % (Manual) Abnorm Lymph % (Manual) Nucleated RBC % Neutrophils # (Manual) Lymphocytes # (Manual) Monocytes # (Manual) Eosinophils # (Manual) Basophils # (Manual) Differential Comment WBC Morphology Platelet Estimate Platelet Morphology RBC Morph Micro Appear PT INR APTT Bld Gas Analysis Time Sample Site ABG pH ABG pCO2 ABG pO2 ABG HCO3 ABG Total CO2 ABG O2 Saturation ABG Base Excess Cordell Test O2 Delivery Device O2 Liters/Min Sodium Potassium Chloride Carbon Dioxide Anion Gap BUN Creatinine Estimated GFR (MDRD) Glucose Lactic Acid Calcium Total Bilirubin AST ALT Alkaline Phosphatase Troponin I High Sens 172.7 H* B-Natriuretic Peptide Total Protein Albumin Globulin Albumin/Globulin Ratio Nasal Adenovirus (PCR) Nasal B. parapertussis DNA (PCR) Nasal Coronavir 229E PCR Nasal Coronavir HKU1 PCR Nasal Coronavir NL63 PCR Nasal Coronavir OC43 PCR Nasal Enterovir/Rhinovir PCR Nasal Influenza B PCR Nasal Influenza A PCR Nasal Parainfluen 1 PCR Nasal Parainfluen 2 PCR Nasal Parainfluen 3 PCR Nasal Parainfluen 4 PCR Nasal RSV (PCR) Nasal B.pertussis DNA PCR Nasal C.pneumoniae (PCR) George Human Metapneumo PCR Nasal M.pneumoniae (PCR) Nasal SARS-CoV-2 (PCR) PD Medical Decision Making - ED course Complexity details: reviewed old records, reviewed results, re-evaluated patient, considered differential, d/w patient, d/w family ED course: Sudden onset shortness of breath and hypoxia. Patient is on 15 L nonrebreather on arrival saturating mid 90s. There do appear to be faint crackles at the bases, however lungs are otherwise clear. Patient does not appear to be grossly volume overloaded. Respiratory therapy paged for evaluation. Based on patient's symptoms as well as the rapid onset cannot rule out pulmonary embolism. Stat CT angio will be ordered for assessment. Preliminary review of CT angio does not appear to show any large pulmonary embolism, however he does have what appears to be pulmonary edema with bilateral pleural effusions, left greater than right. Patient has been transitioned to BiPAP and is now breathing much more comfortably. 40 mg of IV Lasix ordered for diuresis. Patient denies history of heart problems or heart failure. Initial lactic acid 4.8, likely due to increased work of breathing and hypoxia. Initial high-sensitivity troponin 55. EKG is not obviously ischemic, patient denies ever having chest pain, this is likely secondary to demand from hypoxia and increased work of breathing. Will order 2-hour troponin and will reassess. Patient is diuresing well with Lasix, is able to sleep comfortably on BiPAP. Repeat troponin slightly higher than previous at 78. Patient continues to deny any chest pain. - Critical Care Time(min): 42 Time Includes: Direct patient care, Review records, Reassess patient, Document care, Coordinate care, Medical consult, Family consult for tx dec Data interpretation: Labs, Pulse ox, ABG, CXR, Prior EKG, Cardiac output Procedures excluded from critical care time: EKG Departure - Departure Disposition: 02 Transfer Acute Care Hosp Clinical Impression: Congestive heart failure (CHF), Acute hypoxemic respiratory failure, Metabolic acidosis, Elevated troponin Condition: Serious Forms: PCP List Discharge Date/Time: 03/29/24 14:22
[2024-03-29 04:00] LABS: BASOPHILS # (AUTO) 0.1 10^3/uL (0.0-0.1); EOSINOPHILS # (AUTO) 0.4 10^3/uL (0.0-0.7); HCT - HEMATOCRIT 48.9 % (42.0-52.0); HGB - HEMOGLOBIN 15.9 g/dL (14.0-18.0); LYMPHOCYTES # (AUTO) 5.2 10^3/uL (1.5-3.5); LYMPHOCYTES % (AUTO) 35.7 %; MEAN CORPUSCULAR HEMOGLOBIN 31.8 pg (27.0-31.0); MEAN CORPUSCULAR HGB CONC 32.5 g/dL (32.0-36.0); MEAN CORPUSCULAR VOLUME 97.8 fL (80.0-94.0); MEAN PLATELET VOLUME 10.1 fL (7.4-11.4); MONOCYTES # (AUTO) 1.5 10^3/uL (0.0-1.0); MONOCYTES % (AUTO) 10.1 %; NEUTROPHILS # (AUTO) 7.2 10^3/uL (1.5-6.6); NEUTROPHILS % (AUTO) 49.6 %; PLT - PLATELET COUNT 228 10^3/uL (130-450); RED CELL DISTRIBUTION WIDTH 13.7 % (12.0-15.0); WHITE BLOOD COUNT 14.6 x10^3/uL (4.8-10.8)
[2024-03-29 04:07] LABS: PARTIAL THROMBOPLASTIN TIME 27.2 secs (24.9-33.3)
[2024-03-29 04:11] LABS: PT - PROTHROMBIN TIME 11.5 secs (9.9-12.6)
[2024-03-29] MEDS: iohexoL-300 100 ML VIAL IVP ONE (04:12)
[2024-03-29 04:23] LABS: ALBUMIN 4.3 g/dL (3.2-5.5); ALBUMIN/GLOBULIN RATIO 1.5 (1.0-2.2); BILIRUBIN,TOTAL 0.6 mg/dL (0.2-1.0); CALCIUM 9.2 mg/dL (8.5-10.3); CREATININE 1.3 mg/dL (0.6-1.3); POTASSIUM 4.6 mmol/L (3.5-4.5); TOTAL PROTEIN 7.1 g/dL (6.4-8.9)
[2024-03-29 04:26] LABS: ABG BASE EXCESS -9.6 mmol/L (-2.0-3.0); ABG HCO3 17.3 mmol/L (22.0-26.0); ABG PCO2 41 mmHg (34-45); ABG PH 7.24 (7.35-7.45); ABG PO2 68 mmHg (80-100); ABG TCO2 18.5 MMOL/L (21.0-29.0)
[2024-03-29 04:27] LABS: ABG OXYGEN SATURATION 91 % (94-98); ALLEN TEST POSITIVE
[2024-03-29 04:37] LABS: PLATELET ESTIMATE, MANUAL NORMAL (130-450,000) (NORMAL); PLATELET MORPHOLOGY NORMAL APPEARANCE (NORMAL); RBC MORPHOLOGY (MULTIPLE) NORMAL APPEARANCE (NORMAL); WBC MORPHOLOGY (MULTIPLE) NORMAL APPEARANCE (NORMAL)
[2024-03-29] MEDS: FUROSEMIDE 40 MG/4 ML VIAL IVP STA (04:37)
[2024-03-29 04:38] LABS: DIFFERENTIAL COMMENT MANUAL=AUTO DIFF
[2024-03-29 05:17] LABS: B. PARAPERTUSSIS- RESP PCR PAN NOT DETECTED; B. PERTUSSIS- RESP PCR PANEL NOT DETECTED; C. PNEUMONIAE- RESP PCR PANEL NOT DETECTED; CORONAVIRUS 229E-RESP PCR NOT DETECTED; CORONAVIRUS HKU1-RESP PCR NOT DETECTED; CORONAVIRUS NL63-RESP PCR NOT DETECTED; CORONAVIRUS OC43-RESP PCR NOT DETECTED; HUMAN METAPNEUMOVIRUS NOT DETECTED; INFLUENZA A- RESP PCR PANEL NOT DETECTED; INFLUENZA B - RESP PCR PANEL NOT DETECTED; M. PNEUMONIAE- RESP PCR PANEL NOT DETECTED; PARAINFLUENZA VIRUS 1 NOT DETECTED; PARAINFLUENZA VIRUS 2 NOT DETECTED; PARAINFLUENZA VIRUS 3 NOT DETECTED; PARAINFLUENZA VIRUS 4 NOT DETECTED; RHINOVIRUS/ENTEROVIRUS NOT DETECTED; RSV- RESP PCR PANEL NOT DETECTED; SARS-CoV-2 -RESP PCR PANEL NOT DETECTED
[2024-03-29] MEDS: NITROGLYCERIN 2% PASTE TOP STA (07:08)
--- NOTE | 2024-03-29 07:08 | ED Physician Documentation ---
ED Addendum - Addendum Addendum: 03/29/24 07:08 68-year-old gentleman with sudden onset dyspnea, rising troponin and evidence of CHF signed out to me by Dr. Kelly at 7 AM shift change with search ongoing for bed at a cardiac capable facility. Reported to me that he has diuresed well. There has been no chest pain. Had been on BiPAP but is now on a nasal cannula. 03/29/24 07:[address] Rothman, Hospitalist in [place] pending bed availability. 03/29/24 07:56 Seen and examined at the bedside. He appears comfortable. Nitropaste in place and he is on nasal cannula. 03/29/24 12:22 No bed available at [place] yet. [facility] read reached out to us and I spoke with her manager beauty, Dr. Chino who is agreeable to transfer and they will get a hospitalist on the line for me. 03/29/24 12:[address] Delgado at [facility] at this time. [place] are completed and he is stable for transport. Disposition transferred to [facility] for cardiology coverage Condition: Stable Diagnosis: 1. Acute pulmonary edema 2. Rising troponins
--- NOTE | 2024-03-29 10:10 | CT Report ---
PROCEDURE: Angio Chest INDICATIONS: SUDDEN DYSPNEA, TACHYCARDIA, HYPOXIA CONTRAST: 100 ML OMNI 300 TECHNIQUE: After the administration of intravenous contrast, 2 mm axial images were acquired from the pulmonary apices to the posterior costophrenic angles during the arterial phase. In addition, 1 mm lung kernel and 5 mm soft tissue kernel reconstructions were performed. 3-dimensional coronal oblique maximum int ensity projection (MIP) reformats, 8 mm axial MIP, and 5 mm coronal and sagittal MPR reformats were t hen performed through the thorax. For radiation dose reduction, the following was used: automated exp osure control, adjustment of mA and/or kV according to patient size. COMPARISON: None. FINDINGS: Image quality: Mild motion degrades images.. Large vessels: No filling defects within the opacified pulmonary arteries, accounting for motion and contrast timing. No evidence of acute aortic syndrome or aortic aneurysm. Lungs and pleura: No consolidation. Mild interstitial prominence. Left and right small pleural effusi ons. No pneumothorax. No suspicious pulmonary nodules which require follow up. Mediastinum: Heart size is normal. No pericardial effusion. No large vessel abnormality. Level 4R lym ph node measuring 1.7 cm in short axis with central fatty zurdo. Right hilar lymph node measuring 1.5 cm. Chest wall and lower neck: Thyroid is unremarkable. No axillary or supraclavicular adenopathy by size . Bones: No aggressive osseous abnormality. Upper Abdomen: Unremarkable. IMPRESSION: No pulmonary embolus. Mild interstitial thickening when combined with small effusions can be seen in setting of pulmonary e lei. Findings are concordant with preliminary interpretation provided by [facility]. Reviewed by: Carlos Cai MD on 03/29/2024 9:08 AM LINK Approved by: Carlos Cai MD on 03/29/2024 9:08 AM LINK Station ID: [id number]
[2024-03-29 14:21] VITALS: BP 188/94; O2SAT 95
== END 2024-03-29 14:22 | disposition short-term general hospital (02) ==
LOC: EDUNIT# → ED 03:41
DX: I11.0 Hypertensive heart disease with heart failure (principal); I50.9 Heart failure, unspecified; J96.01 Acute respiratory failure with hypoxia; E87.20 Acidosis, unspecified; R79.89 Other specified abnormal findings of blood chemistry; E78.00 Pure hypercholesterolemia, unspecified; Z87.442 Personal history of urinary calculi; R73.03 Prediabetes; Z79.84 Long term (current) use of oral hypoglycemic drugs; Z79.899 Other long term (current) drug therapy; F17.200 Nicotine dependence, unspecified, uncomplicated
CPT/HCPCS: 36415; 36600; 71275; 80053; 82803; 83605; 83880; 84484; 85025; 85610; 85730; 87633; 93005; 94660; 96374; 99291; A9270; Q9967

== ENCOUNTER 2024-03-29 14:21 | Outpatient (CLI) | payer MEDICARE | END 2024-03-29 23:59 | disposition short-term general hospital (02) | LOC: EMS 14:21 | PROVIDERS: ATTEND Emergency Medicine | DX: I50.9 Heart failure, unspecified (principal); R79.89 Other specified abnormal findings of blood chemistry | CPT/HCPCS: A0425; A0426 ==